=== PATIENT | female | born 1985 | race African-American/Black ===

== ENCOUNTER 2024-03-12 01:06 | Emergency (ER) | payer MEDICAID, OTHER ==
[~2024-03-12] VITALS: Ht 162.6 cm; Wt 91.0 kg
[2024-03-12 01:17] VITALS: TEMP 97.7; O2SAT 100
[2024-03-12] MEDS: ACETAMINOPHEN 1000MG/100ML 100 ML IV ONE (02:26)
[2024-03-12 02:34] LABS: CHLORIDE 108 mEq/L (98-107); POTASSIUM 4.1 mEq/L (3.5-5.1); SODIUM 142 mEq/L (136-145)
[2024-03-12 02:35] LABS: CARBON DIOXIDE 24 mEq/L (21-32)
[2024-03-12 02:36] LABS: CALCIUM 9.2 mg/dL (8.7-10.4)
[2024-03-12 02:40] LABS: GLUCOSE 84 mg/dL (70-105)
[2024-03-12 02:41] LABS: UREA NITROGEN BLOOD 18 mg/dL (9-23)
[2024-03-12 03:31] LABS: BASOPHILS % 0.7 % (0.0-2.0); HEMATOCRIT. 27.9 % (36.0-48.0); HEMOGLOBIN. 9.2 g/dL (12.0-16.0); LYMPHOCYTES % 24.4 % (20.0-50.0); MEAN CORPUSCULAR HEMOGLOBIN 31.6 pg (28.0-32.0); MEAN CORPUSCULAR HGB CONC 32.9 g/dL (31.0-37.0); MEAN CORPUSCULAR VOLUME 96.3 fL (81.0-99.0); MEAN PLATELET VOLUME 7.3 fl (7.4-10.4); MONOCYTES % 6.9 % (2.0-8.0); PLATELET 810 x1000/uL (130-400); RED CELL DISTRIBUTION WIDTH 15.8 % (11.6-14.6); WHITE BLOOD COUNT 8.7 x1000/uL (4.5-11.0)
[2024-03-12 03:35] VITALS: BP 115/64; PULSE 84; RESP 18; O2SAT 98
[2024-03-12] MEDS: MORPHINE SULFATE 4 MG/ML INJ (FOR IV/IM USE) IV ONE (04:48)
[2024-03-12] MEDS ORDERED: HYDR-4001 MT (05:12)
== END 2024-03-12 06:57 | disposition home or self-care (01) ==
LOC: ER 01:06
DX: S81.812A Laceration without foreign body, left lower leg, initial encounter (principal); G89.18 Other acute postprocedural pain; F12.90 Cannabis use, unspecified, uncomplicated; Z98.890 Other specified postprocedural states; X58.XXXA Exposure to other specified factors, initial encounter; Y93.89 Activity, other specified; Y92.89 Other specified places as the place of occurrence of the external cause; Y99.8 Other external cause status
CPT/HCPCS: 80048; 85025; 36415; 93971; 73590; 96365; 96375; 99285; J2270; Z7610 ×2; J0131